=== PATIENT | male | born 1980 | race Caucasian/White ===

== ENCOUNTER 2019-12-17 09:15 | Emergency (ER) | payer OTHER ==
[~2019-12-17] VITALS: Ht 188 cm; Wt 98.0 kg
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
--- NOTE | 2019-12-17 10:19 | RAD ---
EXAM: Right knee, 3 views. HISTORY: Twisting injury. COMPARISON: None. FINDINGS: 3 views of the right knee are obtained. There is no fracture, dislocation or subluxation. There is smooth benign osseous excrescence along the medial aspect of the medial femoral condyle. There are few soft tissue calcifications. There is no significant joint effusion. IMPRESSION: No acute osseous finding. Electronically signed by: Radha Shultz MD (12/17/2019 10:16 AM) [id number]
[2019-12-17 10:52] VITALS: BP 137/79
== END 2019-12-17 10:53 | disposition home or self-care (01) ==
LOC: ER 09:15
DX: S83.411A Sprain of medial collateral ligament of right knee, initial encounter (principal); F10.20 Alcohol dependence, uncomplicated; Y90.9 Presence of alcohol in blood, level not specified; X50.9XXA Other and unspecified overexertion or strenuous movements or postures, initial encounter; Y93.I9 Activity, other involving external motion; Y92.89 Other specified places as the place of occurrence of the external cause; Y99.8 Other external cause status
CPT/HCPCS: 73562; 99283